=== PATIENT | female | born 1995 | race Caucasian/White ===

== ENCOUNTER 2017-04-13 13:42 | Emergency (ER) | payer OTHER ==
[2017-04-13 13:56] VITALS: O2SAT 98
[2017-04-13] MEDS ORDERED: ONDANSETRON DISINTEGRATING 4 MG TAB PO ONE (14:37)
--- NOTE | 2017-04-13 15:06 | EDPHY ---
H & P Stated Complaint: ROMERO, CONFUSION. NAUSEATED. HX- MIGRAINES Time Seen by Provider: 04/13/17 14:29 HPI/ROS: CHIEF COMPLAINT: Transient confusion, aphasia HISTORY OF PRESENT ILLNESS: 21-year-old female arrives via private vehicle. Patient has a history of migraine headache since [employer], states that while she was in class today at 10:00 a.m. she started to notice right visual aura accompanied shortly thereafter by non thunderclap right-sided headache which feels like her usual migraine. At 11:00 a.m. she noted difficulty writing and difficulty forming words. This lasted for approximately 15 min and is now resolved. She is currently only complaining of nausea mild headache. She consumed 600 mg of ibuprofen. She denies history of head or neck trauma or manipulation, major or minor. Denies fever chills. Denies recent illness. Denies gait instability. Denies slurred speech REVIEW OF SYSTEMS: A ten point review of systems was performed and is negative with the exception of the items mentioned in the HPI PAST MEDICAL & SURGICAL HISTORY: Migraine headache SOCIAL HISTORY: [employer] Student PHYSICAL EXAM (Prior to examination, patient consented to physical exam, hands were washed and my usual and customary physical exam procedures followed) 1) GENERAL: Well-developed, well-nourished, alert and oriented. Appears to be in no acute distress. Smiling, sitting in a fully alert room, shakes my hand appears well 2) HEAD: Normocephalic, atraumatic 3) HEENT: Symmetrical faces. Pupils equal, round, reactive to light bilaterally. Sclera anicteric. Nasopharynx, oropharynx, clear, no lesions. Ears bilaterally with normal tympanic membranes. 4) NECK: Full range of motion, no meningeal signs. 5) LUNGS: Clear auscultation bilaterally, no wheezes, no rhonchi, no retractions. 6) HEART: Regular rate and rhythm, no murmur, no heave, no gallop. 7) ABDOMEN: No guarding, no rebound, no focal tenderness, negative McBurney's, negative Payne's, negative Rovsing's, negative peritoneal sign, 8) MUSCULOSKELETAL: Moving all extremities, no focal areas of tenderness, no obvious trauma. No peripheral edema or discoloration. 9) BACK: No CVA tenderness, no midline vertebral tenderness, no fluctuance, no step-off, no obvious trauma, no visual or palpable abnormality. 10) SKIN: No rash, no petechiae. 11) Psychiatric: Patient is oriented X 3, there is no agitation. 12) NEURO: Awake, alert, and oriented to person, place and time. Answers questions appropriately. There were no obvious focal neurologic abnormalities. No cerebellar dysfunction. Cranial nerves 2 through to 12 intact. Normal steady gait. Upper and lower extremities bilaterally with strength 5 / 5, reflexes 2+. DIFFERENTIAL DIAGNOSIS: In no particular order, including but not limited to subarachnoid hemorrhage, migraine headache, CVA, tension headache and infectious causes such as meningitis, pharyngitis and sinusitis. - Personal History LMP (Females 10-55): Now Current Tetanus/Diphtheria Vaccine: Yes Current Tetanus Diphtheria and Acellular Pertussis (TDAP): Yes - Medical/Surgical History Hx Asthma: No Hx Chronic Respiratory Disease: No Hx Diabetes: No Hx Cardiac Disease: No Hx Renal Disease: No Hx Cirrhosis: No Hx Alcoholism: No Hx HIV/AIDS: No Hx Splenectomy or Spleen Trauma: No Other PMH: denies - Social History Smoking Status: Never smoked Constitutional: Initial Vital Signs Temperature (C) 36.7 C 04/13/17 13:53 Heart Rate 80 04/13/17 13:53 Respiratory Rate 17 04/13/17 13:53 Blood Pressure 156/90 H 04/13/17 13:53 O2 Sat (%) 98 04/13/17 13:53 O2 Delivery Mode Room Air Allergies/Adverse Reactions: No Known Allergies Allergy (Unverified 03/03/16 02:43) Home Medications: Medication Instructions Recorded Ondansetron Odt [Zofran Odt] 4 mg PO Q4PRN PRN #10 tab 04/13/17 methylPREDNISolone [Medrol Dose 4 mg PO DAILY #1 ea 04/13/17 Mina] Medical Decision Making ED Course/Re-evaluation: 3:09 p.m.: Patient was re-evaluated with serial examinations. At initial and on repeat exam she has a nonfocal neurologic examination, only complaint initially was nausea which is resolved after oral Zofran. At this time as the patient has a nonfocal exam, no neurologic complaints, I do not think that emergent imaging is indicated. Doubt CVA. We discussed more than likely migraine variant. I discussed case with secondary supervising physician Dr. Dio Cowan in the ER. Have recommended patient follow up with a neurologist have given her this follow-up information. Given her my usual and customary neurologic precautions instructions and feels comfortable being discharged and feels comfortable with this plan. All questions and concerns addressed by myself. - Data Points Medications Given: Discontinued Medications Acetaminophen (Tylenol) 1,000 mg PO EDNOW ONE Stop: 04/13/17 15:27 Last Admin: 04/13/17 15:30 Dose: 1,000 mg Ondansetron HCl (Zofran Odt) 4 mg PO EDNOW ONE Stop: 04/13/17 14:38 Last Admin: 04/13/17 14:40 Dose: 4 mg Departure - Departure Disposition: Home, Routine, Self-Care Clinical Impression: Migraine Qualifiers: Migraine type: unspecified Status migrainosus presence: without status migrainosus Intractability: not intractable Qualified Code(s): G43.909 - Migraine, unspecified, not intractable, without status migrainosus Condition: Good Instructions: Migraine Headache (ED) Additional Instructions: RETURN TO THE ED IMMEDIATELY IF YOUR HEADACHE WORSENS, IF YOU DEVELOP A FEVER, NECK PAIN OR NECK STIFFNESS, OR IF YOU BECOME CONFUSED OR ABNORMALLY DROWSY. Referrals: See Campbell MD [Medical Doctor] - 2-3 days, call for appt. (Dr. See Campbell is a neurologist) Stand Alone Forms: School Excuse Prescriptions: methylPREDNISolone [Medrol Dose Mina] 4 mg PO DAILY #1 ea Ondansetron Odt [Zofran Odt] 4 mg PO Q4PRN PRN #10 tab PRN Reason: Nausea
[2017-04-13] MEDS ORDERED: ACETAMINOPHEN 500 MG TAB PO ONE (15:26)
[2017-04-13 15:37] VITALS: BP 127/60; PULSE 71; RESP 15; TEMP 97.9
== END 2017-04-13 15:35 | disposition home or self-care (01) ==
DX: G43.909 Migraine, unspecified, not intractable, without status migrainosus (principal)

== ENCOUNTER → 2017-05-31 | Outpatient (CLI) | payer OTHER ==
[~2017-05-31] MED LIST: GADOBUTROL 10 ML VIAL IVP ONE
== END ==
LOC: FIMAGING 06:45
PROVIDERS: ATTEND Psychiatry & Neurology Neurology
DX: G43.109 Migraine with aura, not intractable, without status migrainosus (principal)
CPT/HCPCS: A9585